=== PATIENT | male | born 1985 | race Caucasian/White ===

== ENCOUNTER 2021-11-19 08:23 | Emergency (ER) | payer SELFPAY ==
[~2021-11-19] VITALS: Ht 182.9 cm; Wt 104.9 kg
--- NOTE | 2021-11-19 08:33 | NUR ---
BIBS FOR C/O SOB AND CHEST TIGHTNESS X FEW DAYS. WORST TODAY. OXYGEN SATURATION IN ROOM AIR IS AT 98%. PATIENT HAS NO HOME MEDS. THE PATIENT IS ALERT AND ORIENTGED X4. DENIES PAIN. ATTACHED THE PATIENT TO THE MONITOR. WILL CONTINUE TO MONITOR THE PATIENT.
--- NOTE | 2021-11-19 08:39 | NUR ---
DR SHETH AT BEDSIDE W/ PATIENT.
[2021-11-19] MEDS ORDERED: predniSONE 20 MG TABLET ONE (08:59)
[2021-11-19] MEDS: predniSONE 20 MG TABLET PO ONE (09:01)
--- NOTE | 2021-11-19 09:01 | NUR ---
PREDNISONE GIVEN TO PATIENT INDICATED, TAKEN WELL.
[2021-11-19] MEDS ORDERED: ALBUTEROL FS 2.5 MG/3 ML VIAL.NEB ONE (09:03)
[2021-11-19] MEDS ORDERED: IPRATROPIUM NEB FS 0.5 MG/2.5 ML AMPUL.NEB ONE (09:03)
--- NOTE | 2021-11-19 09:05 | NUR ---
RT AT BEDSIDE FOR BREATHING TX
[2021-11-19] MEDS: ALBUTEROL FS 2.5 MG/3 ML VIAL.NEB NEB ONE (09:07)
[2021-11-19] MEDS: IPRATROPIUM NEB FS 0.5 MG/2.5 ML AMPUL.NEB NEB ONE (09:07)
[2021-11-19] MEDS ORDERED: PRED20TA PO (10:16)
[2021-11-19] MEDS ORDERED: ALBU18HF2 INH (10:16)
[2021-11-19 10:35] VITALS: BP 123/74
--- NOTE | 2021-11-19 10:35 | NUR ---
Patient discharged to home in stable condition. Written and verbal after care instructions given. Patient verbalizes understanding of instruction.
== END 2021-11-19 10:36 | disposition home or self-care (01) ==
LOC: ER 08:30
DX: J45.901 Unspecified asthma with (acute) exacerbation (principal)
CPT/HCPCS: 71045; 94644; 99285; J7512

== ENCOUNTER 2021-12-08 22:22 | Emergency (ER) | payer SELFPAY ==
[~2021-12-08] VITALS: Ht 182.9 cm; Wt 124.7 kg
[~2021-12-08 22:22] MED LIST: ALBU18HF2 INH; PRED20TA PO
[2021-12-08] MEDS ORDERED: predniSONE 20 MG TABLET ONE (22:29)
[2021-12-08] MEDS ORDERED: IPRATROPIUM NEB FS 0.5 MG/2.5 ML AMPUL.NEB NEB ONE (22:30)
[2021-12-08] MEDS ORDERED: predniSONE 20 MG TABLET PO ONE (22:30)
[2021-12-08] MEDS ORDERED: ALBUTEROL FS 2.5 MG/3 ML VIAL.NEB NEB ONE (22:30)
--- NOTE | 2021-12-08 22:32 | NUR ---
RT AT BEDSIDE FOR BREATHINT TX
--- NOTE | 2021-12-08 22:34 | NUR ---
BIBSELF C/O ASTHMA ATTACK X30 MINS [employer]. BILAT WHEEZES. MD WAS AT BEDSIDE FOR EVAL. PLACED ON MONITOR AND PULSE OX AND RT PAGED FOR BREATHING TX
[2021-12-08] MEDS ORDERED: IPRATROPIUM NEB FS 0.5 MG/2.5 ML AMPUL.NEB ONE (22:38)
[2021-12-08] MEDS ORDERED: ALBUTEROL FS 2.5 MG/3 ML VIAL.NEB ONE (22:38)
[2021-12-09] MEDS ORDERED: PRED20TA PO (00:08)
[2021-12-09] MEDS ORDERED: ALBU18HF2 INH (00:26)
--- NOTE | 2021-12-09 00:27 | NUR ---
Patient discharged to home in stable condition. Written and verbal after care instructions given. Patient verbalizes understanding of instruction.
[2021-12-09 00:38] VITALS: BP 143/87
== END 2021-12-09 00:30 | disposition home or self-care (01) ==
LOC: ER 22:27
DX: J45.901 Unspecified asthma with (acute) exacerbation (principal); Z79.899 Other long term (current) drug therapy
CPT/HCPCS: 94640; 99285; J7512

== ENCOUNTER 2023-11-25 17:59 | Emergency (ER) | payer MEDICAID ==
[~2023-11-25] VITALS: Ht 185.4 cm; Wt 102.1 kg
[2023-11-25 18:22] VITALS: TEMP 98.6
[2023-11-25] MEDS ORDERED: predniSONE 20 MG TABLET ONE (18:26)
[2023-11-25] MEDS: predniSONE 20 MG TABLET PO ONE (18:29)
[2023-11-25] MEDS ORDERED: ALBUTEROL FS 2.5 MG/3 ML VIAL.NEB ONE ×2 (18:35)
[2023-11-25] MEDS ORDERED: IPRATROPIUM NEB FS 0.5 MG/2.5 ML AMPUL.NEB ONE (18:35)
[2023-11-25 18:41] VITALS: O2SAT 94
[2023-11-25] MEDS: IPRATROPIUM NEB FS 0.5 MG/2.5 ML AMPUL.NEB NEB ONE (18:41)
[2023-11-25] MEDS: ALBUTEROL FS 2.5 MG/3 ML VIAL.NEB NEB ONE (18:41)
[2023-11-25] MEDS ORDERED: ALBU18HF2 INH (18:42)
[2023-11-25] MEDS ORDERED: PRED20TA PO (18:42)
[2023-11-25 18:51] VITALS: O2SAT 99
[2023-11-25 19:02] VITALS: O2SAT 99
[2023-11-25 19:27] VITALS: BP 130/81; O2SAT 99
== END 2023-11-25 19:28 | disposition home or self-care (01) ==
LOC: ER 18:02
DX: J45.901 Unspecified asthma with (acute) exacerbation (principal)
CPT/HCPCS: 99285; 71045; 94640 ×2; J7512